=== PATIENT | male | born 1935 | race Caucasian/White ===

== ENCOUNTER 2016-12-03 17:36 | Inpatient (IN) | payer MEDICARE, BC ==
--- NOTE | ~2016-12-03 | DS ---
Discharge Summary [facility] [address] [place]. [address] NAME: ASH GARCIA : 37 STATUS : DIS IN PAT#: [id number] AGE: 81 ADM/REG DATE : 12/03/16 MR#: [id number] REPORT SERV DATE: 12/05/16 DICTATED BY: HAM KELLER DATE: 12/04/16 REPORT STATUS : Draft TRANSCRIBED BY: MODL DATE: 12/04/16 ADMISSION DATE: 12/03/2016 DISCHARGE DATE: 12/04/2016 DISCHARGE DIAGNOSES: 1. Obstructive jaundice with total bilirubin level of 27.5. 2. 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 3. Hypertension. 4. Coronary artery disease. 5. Diabetes type 2. CONSULTS: GI, Dr. Duncan. IMAGING: CT of the abdomen and pelvis with and without contrast revealed a pancreatic head mass that was 2.3 x 2.3 cm that was causing at least a partial obstruction to the pancreatic duct. There was also impaired of at least partial common bile duct dilatation with dilated common bile duct down to the margin of the mass measuring up to 1.9 cm in diameter. PROCEDURES: None. HOSPITAL COURSE: This is an 81-year-old gentleman who was admitted to the hospital with an obstructive jaundice. The patient was seen by Dr. Duncan the next morning, and the patient actually refused all kinds of intervention. The patient was very alert and oriented and had a good decision-making capacity as well as clear thought process. The patient has had friends diagnosed with a similar type of GI cancers in the past who just did not do well with invasive surgeries or chemotherapy. The patient wished to be released home so he can enjoy the rest of his life and "eat as much ice cream as possible" which he could not do being a diabetic. All that was reasonable to me and I discussed the case with Dr. Duncan as well as the patient's primary care physician, Dr. Mitchell, who agreed with the patient's decision. Hospice service was contacted after discussion with the patient who was open to the idea. The patient is now being discharged home with hospice. DISCHARGE MEDICATIONS: No changes. DISPOSITION: Home with hospice. FOLLOWUP: The patient is to follow up with Dr. Mitchell as needed. Total of 25 minutes spent in coordinating this patient's discharge today. [facility]/ONIEL Ham Keller MD Discharge Summary [address] [place]. [address] NAME: ASH GARCIA : 36 STATUS : DIS IN PAT#: [id number] AGE: 81 ADM/REG DATE : 12/03/16 MR#: [id number] REPORT SERV DATE: 12/05/16 DICTATED BY: HAM KELLER DATE: 12/04/16 REPORT STATUS : Draft TRANSCRIBED BY: MODL DATE: 12/04/16 / [id number] CC: MD Janes Robles M.D.
--- NOTE | ~2016-12-03 | HP ---
History And Physical [place] [id number] [facility] [place]. [address] NAME: ASH GARCIA : 37 STATUS : ADM IN PAT#: [id number] AGE: 81 ADM/REG DATE : 12/03/16 MR#: [id number] REPORT SERV DATE: 12/04/16 DICTATED BY: ALEYDA POLO DATE: 12/03/16 REPORT STATUS : Draft TRANSCRIBED BY: MODL DATE: 12/03/16 DATE OF ADMISSION: 12/03/2016 CHIEF COMPLAINT: An 81-year-old male presenting with painless jaundice. HISTORY OF PRESENTING ILLNESS: The patient's history was obtained through careful interview with the patient, coupled with review [facility] medical records. The patient for about 12 days or so, has been having generalized fatigue, about an 8-pound weight loss, and feeling "just not well." He had first thought it was just seasonal allergies. He felt thirsty, noticed darkening of his urine, and light-colored stool, but no diarrhea. He has had a very poor appetite and states that food just does not taste right. Just five days prior to admission, his began to notice yellow discoloration to his skin and this prompted him to see his primary care physician on the day leading up to admission and imaging demonstrated dilated bile duct and elevated liver enzymes on lab results. He has had just slight left middle quadrant abdominal pain that has been off and on for several years now. It has been present this last week. It is a dullness quality, exacerbated by lying down, 2 to 3 out of 10 severity, but it has not particularly worsened over this last week. He admits to prostate symptoms with incomplete voiding of urine, dribbling, and poor urine flow, but no dysuria. No fevers or chills. No shortness of breath. No cough. No chest pain. REVIEW OF SYSTEMS: Otherwise, 14-point review of systems was obtained and was negative. PAST MEDICAL HISTORY: 1. Benign prostatic hypertrophy. 2. Colon polyps, seen by Dr. Durbin. 3. Negative cardiac stress test, 2005. 4. Hanson gammopathy of undetermined significance. 5. Elevated cholesterol. 6. Hypertension. 7. Mitral valve prolapse. 8. Occasional premature ventricular contractions. PAST SURGICAL HISTORY: 1. Left arm fracture repair when he was 13 years old. 2. Umbilical hernia repair. ALLERGIES: NO KNOWN DRUG ALLERGIES. History And Physical [place] [address] [facility] [place]. [address] NAME: ASH GARCIA : 37 STATUS : ADM IN PAT#: [id number] AGE: 81 ADM/REG DATE : 12/03/16 MR#: [id number] REPORT SERV DATE: 12/04/16 DICTATED BY: ALEYDA POLO DATE: 12/03/16 REPORT STATUS : Draft TRANSCRIBED BY: ONIEL DATE: 12/03/16 SOCIAL HISTORY: Quit smoking in 1985. Drinks occasional alcohol. Usually has a glass of wine every night, but does not drink any alcohol in five nights. 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 He is a [employer] baseball fan and one time had a [employer] Card. He has no children. He is . His is in good health. FAMILY HISTORY: Mother and sister with breast cancer. Brother and grandfather with colon cancer. A strong family history of diabetes. No known liver disease history in his family. CURRENT MEDICATIONS: Include lisinopril, simvastatin, aspirin 325 mg p.o. daily, and some kind of topical nystatin. PHYSICAL EXAMINATION: VITAL SIGNS: Temperature 98.1, pulse 60, blood pressure 125/58, respiratory rate 18, O2 saturation 97% on room air. GENERAL: A pleasant, cooperative male, in no evidence of distress. HEENT: Pupils equal, round, and reactive to light. No conjunctival pallor. There is obvious jaundice of the eyes. Nares are patent. Oropharynx is clear of obstruction. Moist mucous membranes. No intraoral lesions. NECK: Trachea midline. No thyromegaly. LYMPH: No cervical lymphadenopathy. No supraclavicular lymphadenopathy. No inguinal lymphadenopathy. RESPIRATORY: Clear to auscultation at bases. No wheezes, rales, or rhonchi. Normal respiratory effort. CARDIOVASCULAR: Regular rate and rhythm. No murmurs, rubs, or gallops. No extremity edema is appreciated. ABDOMEN: Completely soft on my exam. I do not appreciate any left-sided tenderness at all. Definitely, no right upper quadrant abdominal tenderness. No hepatosplenomegaly. A nondistended abdomen. DERMATOLOGICAL: Very jaundiced. No pallor, no cyanosis. Warm and dry extremities. PSYCHIATRIC: Normal affect. Good mood. Alert and oriented x3. LABORATORY DATA: AST 352, ALT 566, alkaline phosphatase 784, total bilirubin 30.3, albumin 3.3, white blood cell count 5.3, hemoglobin 12, hematocrit 36, platelets 248. Sodium 131, potassium 3.9, chloride 96, bicarb 27, BUN 9, creatinine 0.8, glucose 135. Urinalysis negative for infection. Lipase negative. STUDIES: Initial noncontrast CT scan of the abdomen and pelvis showed dilated bile duct, dilated gallbladder. No obvious biliary stones, but no mass at that time. I then discussed the case with Dr. Jason Durbin and thought that it would help the patient's workup to have an IV contrasted scan with pancreatic protocol. This did demonstrate a 2.3 x 2.3 cm pancreatic head mass suspicious for primary pancreatic malignancy and there was a partial obstruction to the pancreatic duct with dilatation, but also significant dilatation of the common bile duct up to 1.9 cm. No obvious lymphadenopathy or metastatic disease was identified or primary liver disease identified. History And Physical [address] [address] NAME: ASH GARCIA : 37 STATUS : ADM IN 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 We will check a CA19-9, check a CEA. After I discussed the case with Dr. Jason Durbin, it was clear that the patient should be evaluated for a fine needle aspiration biopsy as well as ERCP with stent placement and felt that this was most appropriately to be done by Dr. Duncan (or Dr. Omer), who are local gastroenterologists who perform endoscopic ultrasound. Therefore, a consult will be made to this gastroenterology specialist and we will make the patient n.p.o. after midnight for this procedure. Also, we will consult Dr. Lopez, abdominal surgeon, who may consider the patient for [place] if this in truth is a solitary pancreatic head mass and if the patient has appropriate indications for this surgical intervention for possible cancer. [facility]/ONIEL Aleyda Polo M.D. / [id number] CC: Kathie Causey M.D. Alan Shikoh, M.D. John Gwin Jr., M.D. William M. Cooney, MD
--- NOTE | ~2016-12-03 | CN ---
Consultation Report [facility] [address] [facility] [place]. [address] NAME: ASH HAMLIN : 37 STATUS : DIS IN PAT#: [id number] AGE: 81 ADM/REG DATE : 12/03/16 MR#: [id number] REPORT SERV DATE: 12/04/16 DICTATED BY: SHA CROWDER DATE: 12/04/16 REPORT STATUS : Draft TRANSCRIBED BY: MODL DATE: 12/04/16 DATE OF CONSULTATION: 12/04/2016 REASON FOR CONSULTATION: Obstructive jaundice. HISTORY OF PRESENT ILLNESS: Mr. Hamlin is a very pleasant 81-year-old male with no significant past medical history, who presented with complaints of painless jaundice. For the past two weeks, the patient has been having weakness and fatigue by reports, but no significant weight loss and no significant abdominal pain. The patient has had a lack of appetite per his report and has noticed considerable darkening of his urine. Several days prior to coming to the hospital, the patient's noted that he was turning yellow. The patient went to go see his primary care physician and was directed to the emergency department. Upon presentation, the patient was noted to have normal white count and electrolytes, but with markedly elevated LFTs with a total bilirubin of 30, alkaline phosphatase of 784, ALT of 566, and AST of 352. Amylase and lipase were both normal. The patient underwent a CT of the abdomen and pelvis, which demonstrated biliary ductal dilatation, but notes clearly defined pancreatic mass. For further evaluation, the patient then underwent an ultrasound of his liver and was found to have a clearly defined mass in the pancreatic head measuring 2.3 x 2.37 cm highly suspicious for malignancy. There was also dilation of the pancreatic duct up to 6 mm. The mass was felt to touch a portion of the portal vein, but without involvement of other vessels. The patient denies any history of pancreatic cancer. FAMILY HISTORY: Pancreatic cancer. The patient denies any other GI-related malignancies. REVIEW OF SYSTEMS: All systems reviewed and were negative aside from what was mentioned in the history of present illness. PAST MEDICAL HISTORY: Includes: 1. BPH. 2. History of colon polyps. The patient's primary allocations clerk is Dr. Durbin. 3. MGUS. 4. Hyperlipidemia. 5. Hypertension. 6. Mitral valve prolapse. 7. History of PVCs. FAMILY HISTORY: The patient denies any family history of pancreatic cancer, but does have a brother and grandfather with colon cancer. SOCIAL HISTORY: The patient quit smoking approximately 30 years ago. Occasional alcohol use, but no illicit substance use. Consultation Report [address] [place]. [address] NAME: ASH HAMLIN : 37 STATUS : DIS IN PAT#: [id number] AGE: 81 ADM/REG DATE : 12/03/16 MR#: [id number] REPORT SERV DATE: 12/04/16 DICTATED BY: SHA CROWDER DATE: 12/04/16 REPORT STATUS : Draft TRANSCRIBED BY: ONIEL DATE: 12/04/16 ALLERGIES: THE PATIENT HAS NO KNOWN DRUG ALLERGIES. OUTPATIENT MEDICATIONS: Include: 1. Lisinopril. 2. Simvastatin. 3. Aspirin. 4. Topical nystatin. PHYSICAL EXAMINATION: VITAL SIGNS: Most recent vital signs include a temperature of 97.9, pulse rate of 58, blood pressure of 130/63, saturating 97% on room air. GENERAL INSPECTION: Reveals an elderly male, lying in bed, in no apparent distress. HEENT: Head is normocephalic, atraumatic with normal inspection of the oral mucosa with moist mucous membranes. Sclerae are clearly icteric. Pupils are equal and round. NECK: Supple without lymphadenopathy. HEART: Rate is regular with normal S1, S2. LUNGS: Sounds are clear to auscultation bilaterally. ABDOMEN: Soft, nontender, nondistended with normoactive bowel sounds. EXTREMITIES: The patient has no cyanosis, clubbing, or edema. The patient is markedly jaundiced, but no rashes were noted. NEUROLOGIC: No gross motor deficits. He is alert and oriented. Mood and affect are appropriate. Judgment appears to be intact. LABORATORY DATA: Most recent laboratory results include a CBC that shows a white count of 5.5, hemoglobin of 11.0, and a platelet count of 262,000. Comprehensive metabolic panel is remarkable for sodium of 129, chloride of 95, and elevated LFTs with a total bilirubin of 27.5, alkaline phosphatase 661, ALT 447, AST 260. CA was relatively normal at 3.3. TSH was mildly low at 0.6. CA-99 was 13.5, which is normal. INR was noted to be 1. IMAGING: CT of the abdomen was reviewed personally. There was marked biliary dilatation seen throughout the entire liver, but no clear liver mass is seen on this examination. The patient then underwent a second CT scan (not an ultrasound as previously reported), which did demonstrate a 2.3 x 2.3 cm mass in the head of the pancreas highly suspicious for pancreatic malignancy. ASSESSMENT AND PLAN: Mr. Hamlin is a very pleasant 81-year-old male with no significant past medical history, comes in with painless obstructive jaundice, and was found to have a mass in the head of his pancreas causing biliary obstruction. This is highly concerning for a primary pancreatic malignancy. I have discussed with the patient and I have recommended endoscopic ultrasound with biopsy as well as ERCP for placement of a biliary stent to help relieve his jaundice; however, the patient is hesitant about having any procedures knowing that this is likely a pancreatic malignancy. The patient states that he has had many acquaintances who have developed pancreatic cancer over the years and "none of the outcomes have been good." The patient states that he does not think that he wants to have any Consultation Report [address] [place]. [address] NAME: ASH HAMLIN : 37 STATUS : DIS IN PAT#: [id number] AGE: 81 ADM/REG DATE : 12/03/16 MR#: [id number] REPORT SERV DATE: 12/04/16 DICTATED BY: SHA CROWDER DATE: 12/04/16 REPORT STATUS : Draft TRANSCRIBED BY: ONIEL DATE: 12/04/16 procedures to try and prolong his life. It was clearly explained to the patient that there is the chance that this is not cancerous and even if there were, treatments are available to help prolong and extend the time that he has remaining. The patient clearly stated that he wished to think about it, but at this time is not interested in pursuing any further testing. I informed the patient that he can change his mind at any time and we can proceed with the aforementioned procedures. I discussed with the nurse and we will let her know that we would be waiting to see if the patient had a change of heart. If the patient does not wish to proceed with any further workup and is sent home as he stated his wishes are, palliative Care consult would likely be appropriate. Thank you very much for this interesting consultation. Please call if the patient wishes to proceed with any further evaluation or if there are any further questions that we can assist with. [facility] Sha Crowder MD / [id number] CC: MD Janes Robles M.D.
[2016-12-03 13:52] LABS: ALBUMIN 3.3 G/DL (3.5-5.0); CALCIUM, SERUM 9.3 MG/DL (8.5-10.4); CHLORIDE, SERUM 96 MMOL/L (96-112); CO2 (CARBON DIOXIDE) 27 MMOL/L (24-34); POTASSIUM, SERUM 3.9 MMOL/L (3.5-5.3); SGOT(AST) 352 U/L (5-40); SODIUM, SERUM 131 MMOL/L (135-148)
[2016-12-03 13:55] LABS: HEMOGLOBIN 12.4 g/dL (13.6-17.8); MEAN CORPUSCULAR HEMOGLOB 31.9 pg (26.0-34.0); MEAN CORPUSCULAR VOLUME 93.8 fL (80-100); MEAN PLATELET VOLUME 9.7 fL (6.8-10.8); PLATELET COUNT 248 10/3/uL (150-400); RBC DISTRIBUTION WIDTH 14.9 % (12.0-16.0); WHITE BLOOD CELLS 5.3 10/3/uL (4.5-10.5)
[2016-12-03 13:56] LABS: ALKALINE PHOSPHATASE 784 U/L (45-117); BUN (BLOOD UREA NITROGEN) 9 MG/DL (6-23); GFR AFRICAN AMERICAN 98 ML/MIN (>=60); GFR NON AFRICAN AMERICAN 84 ML/MIN (>=60); GLOBULIN 3.2 G/DL (2.5-4.1); GLUCOSE, SERUM 135 MG/DL (60-99); SGPT(ALT) 566 U/L (5-65); TOTAL BILIRUBIN 30.3 MG/DL (0-1.2); TOTAL PROTEIN 6.5 G/DL (6.0-8.5)
[2016-12-03 13:59] LABS: HEMATOCRIT 36.5 % (40.0-51.0); MEAN CORPUS HGB CONC 34.1 g/dL (32.0-36.0)
[2016-12-03 14:56] LABS: ASCORBIC ACID (UR NOT ORDER) NEG (NEG); BILIRUBIN, URINE MODERATE (NEG); KETONE, URINE NEGATIVE (NEG)
[2016-12-03] MEDS ORDERED: PRIN5 PO (22:04)
[2016-12-03] MEDS ORDERED: ZOCOR10 PO (22:04)
[2016-12-03] MEDS ORDERED: MYCOSCROI TOP (22:05)
[2016-12-03] MEDS ORDERED: TEARS PURE (22:05)
[2016-12-03] MEDS ORDERED: ASABAYER PO (22:05)
[2016-12-03] MEDS ORDERED: FISH-EPA1000 MG PO (22:06)
[2016-12-03] MEDS ORDERED: Multivit/Min Tab (22:06)
[2016-12-03] MEDS ORDERED: VITAMIN B (22:06)
[2016-12-03] MEDS ORDERED: TUMSROLL PO (22:07)
[2016-12-03] MEDS ORDERED: OYST-CAL500 MG PO (22:07)
[2016-12-04 06:10] LABS: BASOPHILS 0.2 %; BASOPHILS ABSOLUTE 0.01 10/3/uL (0.0-0.16); EOSINOPHILS ABSOLUTE 0.22 10/3/uL (0.0-0.53); IMMATURE GRANULOCYTES 0.4 %; IMMATURE GRANULOCYTES ABSOLUTE 0.02 10/3/uL (0.0-0.11); LYMPHOCYTES 18.4 %; LYMPHOCYTES ABSOLUTE 1.02 10/3/uL (0.67-4.30); MEAN CORPUS HGB CONC 35.7 g/dL (32.0-36.0); MEAN CORPUSCULAR HEMOGLOB 31.8 pg (26.0-34.0); MEAN PLATELET VOLUME 10.6 fL (9.2-13.0); MONOCYTES 16.3 %; NEUTROPHILS 60.7 %; NEUTROPHILS ABSOLUTE 3.36 10/3/uL (2.02-8.40); PLATELET COUNT 262 10/3/uL (150-400); RBC DISTRIBUTION WIDTH 16.1 % (12.0-16.0); RED CELL COUNT 3.46 10/6/uL (4.7-6.1); WHITE BLOOD CELLS 5.5 10/3/uL (4.5-10.5)
[2016-12-04 06:12] LABS: HEMATOCRIT 30.8 % (40.0-51.0); MANUAL DIFF NO %
[2016-12-04 06:14] LABS: PARTIAL THROMBO TIME 29.1 SEC (22.5-37.2); PROTIME (NOT ORD) 13.3 SEC (12.0-14.5)
[2016-12-04 06:33] LABS: BUN (BLOOD UREA NITROGEN) 7 MG/DL (6-23); CA-19-9 13.5 U/ML (< 37.0); CHLORIDE, SERUM 95 MMOL/L (96-112); CO2 (CARBON DIOXIDE) 24 MMOL/L (24-34); GLUCOSE, SERUM 121 MG/DL (60-99); POTASSIUM, SERUM 3.8 MMOL/L (3.5-5.3); SGOT(AST) 260 U/L (5-40); SGPT(ALT) 447 U/L (5-65); SODIUM, SERUM 129 MMOL/L (135-148); TROPONIN I <0.02 NG/ML (<0.05)
[2016-12-04 06:39] LABS: ALBUMIN 2.6 G/DL (3.5-5.0); ALKALINE PHOSPHATASE 661 U/L (45-117); TOTAL BILIRUBIN 27.5 MG/DL (0-1.2)
[2016-12-04 06:40] LABS: A/G RATIO 0.8 (0.7-1.9); CEA 3.3 NG/ML; CREATININE 0.66 MG/DL (0.70-1.30); GFR AFRICAN AMERICAN 106 ML/MIN (>=60); GFR NON AFRICAN AMERICAN 91 ML/MIN (>=60); GLOBULIN 3.3 G/DL (2.5-4.1); TOTAL PROTEIN 5.9 G/DL (6.0-8.5)
[2016-12-04 07:00] LABS: PROCALCITONIN 0.25 ng/mL (<0.5)
== END 2016-12-04 12:46 | disposition home or self-care (01) | DRG 435 ==
LOC: 4SO 17:36
PROVIDERS: Hospitalist; Internal Medicine
DX: C25.0 Malignant neoplasm of head of pancreas (principal); K83.1 Obstruction of bile duct; E11.9 Type 2 diabetes mellitus without complications; R63.0 Anorexia; I10 Essential (primary) hypertension; I25.10 Atherosclerotic heart disease of native coronary artery without angina pectoris; N40.0 Benign prostatic hyperplasia without lower urinary tract symptoms; K82.8 Other specified diseases of gallbladder
CPT/HCPCS: 36415; 74170; 74176; 80053; 81001; 82150; 82378; 83690; 83735; 83880; 84145; 84443; 84484; 85025; 85027; 85610; 85730; 86301; Q9967